=== PATIENT | female | born 1945 | race Two or more races ===

== ENCOUNTER 2020-10-20 07:11 | Emergency (ER) | payer OTHER ==
[~2020-10-20] VITALS: Ht 165.1 cm; Wt 69.9 kg
[~2020-10-20 07:11] MED LIST: CIPRO500 MG PO; DICLOFENAC POTA50 MG PO; EVISTA60 MG; FLAGYL500MG PO; LIPITOR20 MG; LIPITOR40 MG PO
[2020-10-20] MEDS ORDERED: MEDROLPACK PO (12:04)
[2020-10-20] MEDS ORDERED: DICLOFENAC POTA50 MG PO (12:04)
[2020-10-20] MEDS ORDERED: HORIZANT300 MG PO (12:04)
[2020-10-20] MEDS ORDERED: VALACYCLOVIR1000 MG PO (12:04)
== END 2020-10-20 12:12 | disposition home or self-care (01) ==
LOC: ER 07:11
DX: B02.22 Postherpetic trigeminal neuralgia (principal); B02.8 Zoster with other complications

== ENCOUNTER 2020-10-25 23:34 | Inpatient (IN) | payer OTHER ==
[~2020-10-25] VITALS: Ht 165.1 cm; Wt 64.0 kg
[~2020-10-25 23:34] MED LIST changes: +HORIZANT300 MG PO; +MEDROLPACK PO; +VALACYCLOVIR1000 MG PO
[2020-10-25] MEDS ORDERED: SIMVASTATIN80 MG (23:43)
--- NOTE | 2020-10-25 23:44 | NUR ---
SE RECIBE PTE LA CUAL LLEGA EN AMBULANCIA, ALERTA Y ORIENTADA EN ASHLEE TONIA ESFERAS, EN COMPANIA DE FAMILIAR. REFIERE VOMITOS X4 APROXIMADAMENTE DESDE HOY EN LA TARDE Y DIARREAS. PTE INDICA LETICIA [facility]IST[facility] RADHA EN ESCRETA. SE UBICA EN AREA DE OBSERVACION.
--- NOTE | 2020-10-26 01:59 | NUR ---
PTE EVALUADA POR LA DRA OLIVARES QUIEN [place]DE[place]. SE ORIENTA A PTE LO CUAL REFIERE ENTENDER, SE REALIZAN PRUEBAS DE LABORATORIO Y SE ADMINISTRAN MEDICAMENTOS KRYSTAL ORDEN MEDICA Y SIGUIENDO MEDIDAS ASEPTICAS. CT IV NOTIFICADO A PERSONAL DE TURNO.
--- NOTE | 2020-10-26 07:41 | NUR ---
SE RECIBE PTE ALERTA Y ORIETADO POR 3 EN ELAREA DE SE OBSERVACION EN CAMA CON BARANDAS ELEVADA Y TIMBRE ACCESIBLE, PTE NO PRESENTA DOLOR AL MOMETNO SE OBSERVA VENOPUNCION PATENTE Y CAROLYNE DE EDEMA PTE SE MANTIENE EN OBSERVACION Y BAJO TRATAMIENTO.
[2020-10-27] MEDS ORDERED: EZETIMIBE10 MG (08:10)
[2020-10-27] MEDS ORDERED: ATORVASTATIN CA80 MG (08:10)
[2020-10-27] MEDS ORDERED: RALOXIFENE HCL60 MG (08:10)
[2020-10-27] MEDS ORDERED: FENOFIBRATE48 MG (08:10)
[2020-10-27] MEDS ORDERED: GABAPENTIN300 M2 (08:10)
[2020-10-27] MEDS ORDERED: FLUOCINONIDE15 G1 (08:11)
[2020-10-27] MEDS ORDERED: PAIN RELIEF EX500 MG (08:11)
[2020-10-27] MEDS ORDERED: EMERGEN-C 1,01000 MG (08:11)
[2020-10-30] MEDS ORDERED: GABAPENTIN300 MG PO (13:40)
[2020-10-30] MEDS ORDERED: INTESTINEX680 M1 PO (13:40)
[2020-10-30] MEDS ORDERED: AMOX-CLAV 875-1 EACH PO (13:40)
== END 2020-10-30 14:22 | disposition home or self-care (01) | DRG 392 ==
LOC: ER 23:34 → SEC-K 10-26 08:14 → SURH 10-26 08:14
PROVIDERS: ADMIT Internal Medicine; ATTEND Internal Medicine
PROC: BW2110Z Computerized Tomography (CT Scan) of Abdomen and Pelvis using Low Osmolar Contrast, Unenhanced and Enhanced (ICD-10-PCS; principal; 2020-10-26)
PROC: BW40ZZZ Ultrasonography of Abdomen (ICD-10-PCS; 2020-10-28)
DX: K57.32 Diverticulitis of large intestine without perforation or abscess without bleeding (principal); B02.22 Postherpetic trigeminal neuralgia; K29.00 Acute gastritis without bleeding; M79.10 Myalgia, unspecified site; R42 Dizziness and giddiness; E78.5 Hyperlipidemia, unspecified; Z20.822 Contact with and (suspected) exposure to COVID-19

== ENCOUNTER → 2021-09-28 08:15 | Outpatient (CLI) | payer OTHER ==
[~2021-09-28 08:15] MED LIST changes: +AMOX-CLAV 875-1 EACH PO; +ATORVASTATIN CA80 MG; +EMERGEN-C 1,01000 MG; +EZETIMIBE10 MG; +FENOFIBRATE48 MG; +FLUOCINONIDE15 G1; +GABAPENTIN300 M2; +GABAPENTIN300 MG PO; +INTESTINEX680 M1 PO; +PAIN RELIEF EX500 MG; +RALOXIFENE HCL60 MG; +SIMVASTATIN80 MG
== END | disposition home or self-care (01) ==
LOC: NUCLEAR 07:45
DX: R09.89 Other specified symptoms and signs involving the circulatory and respiratory systems (principal); Z88.8 Allergy status to other drugs, medicaments and biological substances

== ENCOUNTER 2021-10-20 09:13 | Outpatient (CLI) | payer OTHER | END 2021-10-20 09:17 | disposition home or self-care (01) | LOC: MRI 09:13 | DX: M75.52 Bursitis of left shoulder (principal) | CPT/HCPCS: 73221 ==

== ENCOUNTER 2021-12-15 08:26 | Outpatient (CLI) | payer OTHER | END 2021-12-15 08:33 | disposition home or self-care (01) | LOC: SONOGRAMA 08:26 | DX: R10.812 Left upper quadrant abdominal tenderness (principal) ==

== ENCOUNTER 2022-02-28 13:01 | Outpatient (CLI) | payer OTHER | END 2022-02-28 13:11 | disposition home or self-care (01) | LOC: PPH VACUNA 13:01 | PROVIDERS: ATTEND Emergency Medicine Pediatric Emergency Medicine | DX: Z23 Encounter for immunization (principal) ==

== ENCOUNTER 2022-03-09 05:43 | Emergency (ER) | payer OTHER ==
[~2022-03-09] VITALS: Ht 162.6 cm; Wt 61.7 kg
== END 2022-03-09 13:14 | disposition home or self-care (01) ==
LOC: ER 05:43
DX: R42 Dizziness and giddiness (principal); M62.838 Other muscle spasm; Z88.8 Allergy status to other drugs, medicaments and biological substances

== ENCOUNTER 2022-07-03 14:18 | Outpatient (CLI) | payer OTHER | END 2022-07-03 14:28 | disposition home or self-care (01) | LOC: MAMO-SONO 14:18 | DX: I11.9 Hypertensive heart disease without heart failure (principal) ==

== ENCOUNTER 2022-07-07 10:10 | Outpatient (CLI) | payer OTHER | END 2022-07-07 10:17 | disposition home or self-care (01) | LOC: SONOGRAMA 10:10 | DX: R31.9 Hematuria, unspecified (principal) ==

== ENCOUNTER 2023-03-24 03:41 | Emergency (ER) | payer OTHER ==
[~2023-03-24] VITALS: Ht 162.6 cm; Wt 54.4 kg
[2023-03-24 04:46] LABS: HEMATOCRIT 40.2 % (36.0-45.00); HEMOGLOBIN 13.8 g/dL (12.0-15.00); MEAN CELL VOLUME 88.5 fL (80.00-100.00); MEAN CORPUSCULAR HEMOGLOBIN 30.4 pg (27.00-32.0); MEAN CORPUSCULAR HGB CONC 34.3 g/dl (32.0-36.0); PLATELET COUNT 387 K/uL (150-450); RED BLOOD COUNT 4.55 M/uL (4.00-6.00); RED CELL DISTRIBUTION WIDTH 14.2 % (11.5-14.5)
[2023-03-24 05:20] LABS: CALCIUM 8.9 mg/dL (8.5-10.1); CREATININE SERUM 0.89 mg/dL (0.55-1.02); GFR 61.67; POTASSIUM 3.8 mEq/L (3.5-5.1)
== END 2023-03-24 05:56 | disposition home or self-care (01) ==
LOC: ER 03:41
DX: K52.89 Other specified noninfective gastroenteritis and colitis (principal); R53.81 Other malaise; Z88.9 Allergy status to unspecified drugs, medicaments and biological substances
CPT/HCPCS: 36415; 96365; 96372; 99282; J1885; J2405; J2765